=== PATIENT | male | born 1980 | race Caucasian/White ===

== ENCOUNTER 2017-07-01 20:26 | Inpatient (IN) | payer OTHER ==
[~2017-07-01] VITALS: Ht 185.4 cm; Wt 153.9 kg
[2017-07-01 21:27] LABS: ABSOLUTE BASOPHIL COUNT 0 /CUMM (0.0-0.2); ABSOLUTE EOSINOPHIL COUNT 0.1 /CUMM (0.0-0.7); ABSOLUTE GRANULOCYTE CT 3.9 /CUMM (1.4-6.5); ABSOLUTE MONOCYTE COUNT 0.8 /CUMM (0.10-0.60); BASOPHIL % 0.5 % (0.0-2.0); EOSINOPHIL % 1.9 % (0-5); GRANULOCYTE % 50.1 % (42.2-75.2); HEMATOCRIT 43.9 % (42-52); MEAN CORPUSCULAR HGB 29.1 PG (27.0-31.0); MEAN CORPUSCULAR HGB CONC 33.9 G/DL (33.0-37.0); MEAN CORPUSCULAR VOLUME 85.9 FL (80.0-94.0); MEAN PLATELET VOLUME 7.1 FL (7.4-10.4); PLATELET COUNT 324 /CUMM (130-400); RBC DISTRIBUTION WIDTH 13.4 % (11.5-14.5); RED BLOOD CELL CT 5.11 /CUMM (4.70-6.10); WHITE BLOOD CELL COUNT 7.8 /CUMM (4.8-10.8)
--- NOTE | 2017-07-01 21:49 | ED GENERAL ADULT ---
History of Present Illness General Chief Complaint: General Adult Stated Complaint: "SOB, CP, FATIGUE. GAINED WATER WEIGHT" Source: patient Exam Limitations: no limitations Vital Signs & Intake/Output Vital Signs & Intake/Output Vital Signs Date Time Temp Pulse Resp B/P B/P Pulse O2 O2 Flow FiO2 Mean Ox Delivery Rate 07/01 2156 96 Room Air 07/02 2155 97.5 64 16 151/89 96 Room Air Allergies Coded Allergies: No Known Allergies (07/01/17) Triage Note: RECEIVED 37 YO MALE PRESENTS TO THE ED WITH C/O UNUSUAL FLUID BUILDUP ALL OVER BODY STARTED LAST TUESDAY WITH 15-20 LB WEIGHT GAIN. PT ALSO REPORTS SHORTNESS OF BREATH AND INTERMITTENT CHEST PAIN. PT REPORTS FATIGUE, H/A WITH SOB AND CP. Triage Nurses Notes Reviewed? yes Onset: Abrupt Duration: day(s): Timing: recent history HPI: 07/01/17 11 PM 37-year-old male presents to the emergency department for intermittent episodes of chest heaviness and difficulty breathing. He also says that he's had bilateral lower extremity swelling. The above symptoms have developed over the past 48-72 hours. He says he is getting winded on ambulation and is unable to go the gym. His symptoms are new and there has been a dramatic change from his baseline. I have concern for acute coronary syndrome he is therefore being admitted to the hospital for echocardiogram, cardiology consultation and further workup. Past History Travel History Traveled to [place] past 21 day No Medical History Any Pertinent Medical History? see below for history Neurological: NONE EENT: NONE Cardiovascular: NONE Respiratory: NONE Gastrointestinal: NONE Hepatic: NONE Renal: NONE Musculoskeletal: NONE Psychiatric: NONE Endocrine: hypothyroidism Blood Disorders: NONE Cancer(s): NONE Surgical History Surgical History: non-contributory Psychosocial History What is your primary language Bulgarian Tobacco Use: Never used Family History Hx Contributory? No Review of Systems Review of Systems Constitutional: Denies: fever. EENTM: Denies: visual changes. Respiratory: Reports: short of breath. Cardiovascular: Reports: chest pain. GI: Denies: abdominal pain. Genitourinary: Reports: no symptoms. Musculoskeletal: Reports: no symptoms. Skin: Reports: no symptoms. Neurological/Psychological: Reports: no symptoms. Hematologic/Endocrine: Reports: no symptoms. Immunologic/Allergic: Reports: no symptoms. Physical Exam Physical Exam General Appearance: alert, awake, anxious, moderate distress Head: atraumatic, normal appearance Eyes: Bilateral: normal appearance, PERRL, EOMI. Ears, Nose, Throat: normal pharynx, normal ENT inspection Neck: normal inspection, supple, full range of motion Respiratory: normal breath sounds, chest non-tender, no respiratory distress Cardiovascular: regular rate/rhythm Peripheral Pulses: 4+ radial (R), 4+ radial (L) Gastrointestinal: soft, non-tender Back: normal range of motion Extremities: pedal edema Neurologic/Psych: no motor/sensory deficits, awake, alert, oriented x 3 Skin: intact, normal color, warm/dry Core Measures ACS in differential dx? Yes No ASA d/t given CVA/TIA Diagnosis: No Sepsis Present: No Sepsis Focused Exam Completed? No Progress Differential Diagnoses I considered the following diagnoses in my evaluation of the patient: [Acute coronary syndrome, CHF, renal failure, pulmonary embolism ] Plan of Care: Orders Procedure Date/time Status LACTIC ACID 07/02 0020 Active Patient Data 07/01 2347 Active Add-on Test (ER Only) 07/02 2239 Active TROPONIN LEVEL 07/01 2238 Active EKG 07/01 2238 Active TROPONIN LEVEL 07/02 2119 Complete LACTIC ACID 07/02 2119 Complete D-DIMER 07/02 2119 Complete COMPREHENSIVE METABOLIC PANEL 07/02 2119 Complete CBC WITHOUT DIFFERENTIAL 07/02 2119 Complete B-TYPE NATRIURETIC PEP (BNP) 07/02 2119 Complete EKG 07/02 2043 Active Laboratory Tests 07/01/172119: Anion Gap 13, Estimated GFR 52 L, BUN/Creatinine Ratio 14.7, Glucose 91, Lactic Acid 1.1, Calcium 9.4, Total Bilirubin 0.4, AST 83 H, ALT 151 H, Alkaline Phosphatase 43, Troponin I < 0.01, Uwj-I-Dwfknqzsguw Pept 41.4, Total Protein 6.8, Albumin 3.9, Globulin 2.9, Albumin/Globulin Ratio 1.3, D-Dimer High Sensitivty < 200, CBC w Diff NO MAN DIFF REQ, RBC 5.11, MCV 85.9, MCH 29.1, MCHC 33.9, RDW 13.4, MPV 7.1 L, Gran % 50.1, Lymphocytes % 37.8, Monocytes % 9.7 H, Eosinophils % 1.9, Basophils % 0.5, Absolute Granulocytes 3.9, Absolute Lymphocytes 3.0, Absolute Monocytes 0.8 H, Absolute Eosinophils 0.1, Absolute Basophils 0 Initial ED EKG: NSR Departure Departure Disposition: STILL A PATIENT Condition: Stable Clinical Impression Primary Impression: ABBI (acute kidney injury) Secondary Impressions: Chest pain Referrals: Augustin Collazo MD (PCP/Family) Departure Forms: Customer Survey General Discharge Information Admission Note Spoke With: Jacqueline Ledesma MD Documentation of Exam: Documentation of any treatments & extenuating circumstances including Concerns Regarding Discharge (functional status, medication knowledge or non-compliance, living conditions, etc.) that warrant an admission rather than observation: [The patient's story is concerning for acute coronary syndrome. He has evidence of renal insufficiency. He needs serial troponins, cardiac monitoring, cardiology consultation] Critical Care Note Critical Care Note Critical Care Time: non-applicable
--- NOTE | 2017-07-01 23:08 | RADIOLOGY REPORT ---
EXAMINATION: XR PORTABLE CHEST CLINICAL INFORMATION: Shortness of breath COMPARISON: None TECHNIQUE: Portable frontal view of the chest was obtained. 10:49 PM FINDINGS: No significant abnormality is noted involving the heart, lungs, mediastinum, bony thorax or soft tissues. IMPRESSION: Unremarkable examination.
--- NOTE | 2017-07-02 00:25 | History & Physical ---
Nils Don MD 07/02/17 0025: General Information and HPI MD Statement: I have seen and personally examined TAMMY WATSON and documented this H&P. The patient is a 37 year old M who presented with a patient stated chief complaint of dyspnea, swelling, chest pain. Source of Information: patient Exam Limitations: no limitations History of Present Illness: 37 year old male with past medical history of morbid obesity and hypothyroidism on synthroid presents with complaints of one week of progressive exertional dyspnea and lower extremity edema. The patient was reportedly in his usual state of health up until one week ago when he noticed gradual onset of edema and exertional dyspnea. The patient says he becomes short of breath after going up one flight of stairs when he usually does thirty minutes of cardio exercise five days a week. The patient takes in a high protein diet and creatine supplements. He states he has gained over 25 pounds of water weight and is now having difficulty putting on pants that previously fit in a short time period. Yesterday, he developed chest pain. He describes it as a shock like pain midsternal more towards the left chest, 3/10 in severity, transient lasting only a few seconds, but greater than 10 episodes in the past 24 hours without associated symptoms, but causing psychological distress. Today, he developed a left sided constant dull headache that is very unusual for him. Review of systems is positive for nasal congestion and minimally productive cough, negative for fevers, chills, cough, abdominal pain, nausea, vomiting, diarrhea. He does report less urine output and feeling increased thirst. He says he usually drinks a gallon of water daily. In the emergency department, he had a chest x-ray, given aspirin, and admitted to telemetry for further management. Allergies/Medications Allergies: Coded Allergies: No Known Allergies (07/01/17) Compliance With Home Meds: GOOD Past History Travel History Traveled to [place] past 21 day No Medical History Neurological: NONE EENT: NONE Cardiovascular: NONE Respiratory: NONE Gastrointestinal: NONE Hepatic: NONE Renal: NONE Musculoskeletal: NONE Psychiatric: NONE Endocrine: hypothyroidism Blood Disorders: NONE Cancer(s): NONE Surgical History Surgical History: non-contributory Past Family/Social History Family History Relations & Conditions if any paternal uncle FH: diabetes mellitus Psychosocial History Smoking Status: Never Smoked ETOH Use: occasional use Illicit Drug Use: denies illicit drug use Functional Ability ADLs Independent: dressing, eating, toileting, bathing. Ambulation: independent IADLs Independent: shopping, housework, finances, food prep, telephone, transportation , medication admin. Review of Systems Review of Systems Constitutional: Reports: see HPI. Denies: chills, diaphoresis, fever. EENTM: Reports: no symptoms. Cardiovascular: Reports: chest pain, peripheral edema. Denies: palpitations, syncope. Respiratory: Reports: cough, short of breath, sputum production. GI: Reports: abdominal pain, constipation, diarrhea, nausea, vomiting. Genitourinary: Denies: dysuria, frequency. Musculoskeletal: Reports: no symptoms. Skin: Reports: no symptoms. Neurological/Psychological: Reports: no symptoms. Hematologic/Endocrine: Reports: polydipsia. Immunologic/Allergic: Reports: no symptoms. All Other Systems: Reviewed and Negative Exam & Diagnostic Data Last 24 Hrs of Vital Signs/I&O Vital Signs Date Time Temp Pulse Resp B/P B/P Pulse O2 O2 Flow FiO2 Mean Ox Delivery Rate 07/02 0153 97.7 80 18 155/69 96 Room Air 07/01 2156 96 Room Air 07/02 2155 97.5 64 16 151/89 96 Room Air Intake & Output 07/02 0800 07/02 0000 07/01 1600 Intake Total 0 Output Total Balance 0 Intake, Oral 0 Patient 158.757 kg Weight Weight Estimated Measurement Method Physical Exam General Appearance Alert, Oriented X3, Cooperative, No Acute Distress Neck Supple, No JVD Cardiovascular Regular Rate, Normal S1, Normal S2, No Murmurs Lungs Clear to Auscultation, Normal Air Movement Abdomen Normal Bowel Sounds, Soft, No Tenderness, No Masses Extremities No Clubbing, No Cyanosis, Normal Pulses, No Tenderness/Swelling, 2+ bilateral lower extremity pitting edema up to the knees Last 24 Hrs of Labs/Yoshi: Laboratory Tests 07/02/17 0020: Troponin I < 0.01, TSH Pending, Thyroxine (T4) 5.0 07/02/17 002: Lactic Acid Cancelled 07/01/172119: Anion Gap 13, Estimated GFR 52 L, BUN/Creatinine Ratio 14.7, Glucose 91, Lactic Acid 1.1, Calcium 9.4, Total Bilirubin 0.4, AST 83 H, ALT 151 H, Alkaline Phosphatase 43, Troponin I < 0.01, Uoa-U-Oicfdjbuwti Pept 41.4, Total Protein 6.8, Albumin 3.9, Globulin 2.9, Albumin/Globulin Ratio 1.3, D-Dimer High Sensitivty < 200, CBC w Diff NO MAN DIFF REQ, RBC 5.11, MCV 85.9, MCH 29.1, MCHC 33.9, RDW 13.4, MPV 7.1 L, Gran % 50.1, Lymphocytes % 37.8, Monocytes % 9.7 H, Eosinophils % 1.9, Basophils % 0.5, Absolute Granulocytes 3.9, Absolute Lymphocytes 3.0, Absolute Monocytes 0.8 H, Absolute Eosinophils 0.1, Absolute Basophils 0 Microbiology 07/02 0233 URINE ROUT: Urine Culture - ORD Diagnostic Data EKG Results sinus rhythm left axis deviation without ischemic changes CXR Results negative for acute cardiopulmonary process Assessment/Plan Assessment: 37 year old male with past medical history of morbid obesity and hypothyroidism presents with complaints of one week of progressive exertional dyspnea and lower extremity edema. Exertional dyspnea and edema: Possibly related to renal failure, nephrotic syndrome, or medications Elevated creatinine and transaminitis on protein supplements Creatinine 1.5 on presentation Repeat renal function in the morning Avoid NSAIDs and nephrotoxic agents Check urine protein and creatinine to evaluate for nephrotic syndrome May need 24 hour urine study Morbid obesity, proBNP normal, atypical chest pain, chest x-ray no pulmonary edema Check serial troponins and EKGs to evaluate for myocardial ischemia Check transthoracic echocardiogram Cardiology consultation Check abdominal ultrasound to evaluate liver, gallbladder, and kidneys Stop all supplements Hypothyroidism: Check TSH Continue synthroid 175mcg Regular diet DVT ppx-heparin 5000 units subcutaneous q8h Full code As Ranked By This Provider Problem List: 1. ABBI (acute kidney injury) 2. Chest pain Core Measures/Misc (12/05) Acute Coronary Syndrome ACS Diagnosis: No Congestive Heart Failure Congestive Heart Failure Diagnosis No Cerebrovascular Accident CVA/TIA Diagnosis: No VTE (View Protocol) VTE Risk Factors Age>40 No Mechanical VTE Prophylaxis d/t N/A MechProphylax Ordered No VTE Pharm Prophylaxis d/t NA PharmProphylax ordered Sepsis (View protocol) Sepsis Present: No Sandra Correa 07/02/17 0508: General Information and HPI Allergies/Medications Home Med list Levothyroxine Sodium 175 MCG TABLET 1 TAB PO DAILY Hypothryoidism (Reported) Resident Review Statement Resident Statement: examined this patient, discussed with internal audit director, agreed with internal audit director, reviewed images Other Findings: 37-year-old gentleman, nonsmoker past medical history significant for hypothyroidism coming in for evaluation of lower extremity swelling, chest pain and mild shortness of breath on walking up one flight of stairs. Lower extremity swelling and shortness of breath about a week duration. Denies fever, chills, cough, orthopnea, proximal nocturnal dyspnea. Also endorses chest pain which started yesterday, describes it at shocklike midsternal nonradiating. ROS significant for right-sided dull aching headache, decreased exercise intolerance and decreased urination since past few days. He has been taking nitroglycerin Tech protein and creatinine supplement over the years. Vitals on admission 97.5, heart rate 64, respiratory rate 16, blood pressure 151 /89, 96% on room air. Examination as above. Labs significant for the unit of 22, creatinine of 1.5 [baseline unknown], AST 83, ALT 151, troponin 0.01, d-dimer less than 200 Chest x-ray was unremarkable and EKG showed normal sinus rhythm. Assessment and plan: Chest pain Admit to telemetry floor, continuous cardiac monitoring Will trend troponin/EKG f/up echocardiogram to look for wall motion or any valvular abnormalities Bilateral lower edema Unclear etiology at this time unlikely to be nephrotic (as his edema is not typical of anasarca, no proteinuria) or nephritic (nonhypertensive, or hematuria ). Possible secondary to chronic venous insufficiency due to his body habitus -Strict I's and O's -Follow-up, urine spot creatinine protein ratio ? ABBI/transaminitis F/up with his PCP to see what his baseline creatinine is Continue to monitor Follow-up LFTs in a.m. Follow-up complete abdominal ultrasound to visualize liver as well as his kidneys His protein and creatinine supplement is noted to cause kidney injury as well as affect liver function Avoid hepatotoxic and Nephrotoxic medications Hypothyroidism Continue levothyroxine Follow-up TSH T4 DVT prophylaxis subcutaneous heparin Nothing by mouth currently for ultrasound Full code Callie,Aartee 07/02/17 0525: Attending MD Review Statement Attending Statement Attending MD Statement: examined this patient, discuss w/resident/PA/COTTON TIER, agreed w/resident/PA/COTTON TIER, reviewed EMR data (avail), reviewed images, amended to note Attending Assessment/Plan: CC: Chest pain PMH: Hypothyroidism, obesity Patient came to ER for today history of chest pain. Patient states that approximately a week back he started to notice bilateral lower extremity swelling, and gradually he felt like the whole body is getting bloated. He usually works out 5 times a week for cardio but in last 1 week his exercise capacity has gone down and he is getting short of breath with half hour of cardio or he gets short of breath climbing one flight of stairs. He also noticed nasal congestion and discharge and productive cough with white colored sputum production. Denies any chest congestion. 2 days back he started to notice substernal chest pain, sharp, 4/10 in intensity, nonradiating, lasting for a few seconds, not precipitated by exertion, no relieving factors, it goes away on its own. Then today he started to notice headache so forth this constellation of symptoms he came to ER. Denies any pleuritic chest pain, fever, chills, urinary complaints, palpitations or passing out. Patient was on liragluitide in past for weight loss, stopped 6 - 8 months back. Takes lot of OTC supplements. Vitals: Afebrile, pulse 64, RR 16, blood pressure 151/89, saturating 96% on room air. On exam: A O 3, cooperative, no acute distress, neck supple, JVD normal, no lymphadenopathy, mucosa moist, no focal neurological deficit, bilateral lower extremity edema mostly around the ankles but up to knees, no obvious skin rashes or inflammation CVS: S1-S2, RRR. RS: Clear to auscultate bilaterally. Abdomen: Soft, NT, ND, bowel sounds present CXR: no acute cardiopulmonary process Assessment and plan 37-year-old male came to ER for shortness of breath mostly dyspnea on exertion worsened since last 1 week, leg swelling since last 1 week, nasal congestion and productive cough with white colored sputum production. 2 days back he started to notice chest pain was was sharp, nonradiating, no aggravating or relieving factors, not precipitated by exertion, 4/10 in intensity. Does not have any significant cardiac history and family. Doesn't smoke. Chest pain appeared atypical but ACS ruled out. Even though patient states he feels bloated all over his only lower extremity edema, I could not appreciate any abdominal pitting edema or fluid thrill, no scrotal edema, no periapical edema. Patient's blood pressure is in acceptable range but his creatinine is elevated, we will rule out any proteinuria for nephrotic syndrome but less likely. We will rule out any congestive heart failure with echocardiogram as well. Edema appears more secondary to obesity and vascular issues which should be worked up outpatient. Possibly OTC supplements could be causing his kidney injury and transaminitis. + Atypical chest pain, rule out ACS + Bilateral lower extremity edema + Elevated creatinine unsure if it's chronic or new - Admit to telemetry - Continuous telemetry monitoring - Serial troponin and EKGs - 2-D echo in a.m. - Cardiology consult in a.m. - Urine protein creatinine ratio - Check TSH - Plate abdominal ultrasound for transaminitis to rule out gallbladder and liver pathology, rule out ascites, evaluate kidneys for elevated creatinine - DVT prophylaxis
[2017-07-02] MEDS ORDERED: LEVOTHYROXINE175 MCG PO (05:08)
--- NOTE | 2017-07-02 05:26 | Admission Certification ---
Admission Certification Certification Statement - As attending physician, I certify that at the time of - admission, based on clinical presentation, severity of - symptoms, need for further diagnostic testing and - therapeutic interventions, and risk of adverse outcomes - without in-hospital treatment, in my clinical assessment, - this patient requires an acute hospital stay for a minimum - of two nights or longer. I have also considered psychsocial - factors such as support system, advanced age, financial - issues, cognitive issues, and failed out-patient treatments, - past re-admission history, safety of patient, and lack of - compliance as applicable. Specific rationale supporting this admission is: atypical chest pain
--- NOTE | 2017-07-02 11:33 | ULTRASOUND REPORT ---
EXAMINATION: ABDOMINAL ULTRASOUND COMPLETE CLINICAL INFORMATION: Acute renal injury. Transaminitis. COMPARISON: None. TECHNIQUE: Real-time imaging of the abdominal viscera. FINDINGS: PANCREAS: The visualized pancreatic head and body are normal in appearance. The remainder of the pancreas is obscured from visualization by the overlying bowel gas. ABDOMINAL AORTA: The proximal, middle, and distal aortic segments are normal in caliber. INFERIOR VENA CAVA: Visualized portions are normal. LIVER: Normal. The liver demonstrates normal size, contour and echogenicity. No focal lesion or intrahepatic biliary duct dilatation. GALLBLADDER: Normal. The gallbladder is physiologically distended without evidence of stones, sludge, polyps, wall thickening or pericholecystic fluid. COMMON BILE DUCT: Normal in caliber measuring 0.4 cm in diameter. RIGHT KIDNEY: Normal. No hydronephrosis. No renal calculi or focal parenchymal lesions. The kidney measures 9.8 cm in maximum dimension. LEFT KIDNEY: Normal. No hydronephrosis. No renal calculi or focal parenchymal lesions. The kidney measures 10.2 cm in maximum dimension. SPLEEN: Normal. The spleen measures 11.9 cm in maximum dimension. FREE FLUID: None. IMPRESSION: Unremarkable abdominal ultrasound.
--- NOTE | 2017-07-02 17:17 | PN- Att Addend ---
Attending Addendum Attending Brief Note 37M PMH hypothyroidism admitted with about a week of worsening diffuse edema, worst in arms, legs, and abdomen, with decreased urination for the past week, drinks 1 gallon of water/day at baseline. He has also noted shooting left sided chest pain that lasts for less than a second at rest intermittently occuring a few times per day. He has no history of heart problems or family history, no new medications or supplements, does not smoke or take drugs. 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 He had T-wave inversions in inferior leads on EKG on admission from his EKG a few years prior. His ensuing EKG's are unchanged from his admission one, with no ST/T changes, NSR. Troponin negative. On exam he has 2+ pitting edema in both legs and increased abdominal girth, soft and non- tender. BNP is normal, creatinine 1.5 on admission, 1.3 now. Transaminases slightly elevated. 1. Anasarca 2. Elevated creatinine 3. Elevated LFTs 4. Chest pain at rest 5. Acute EKG changes Plan - Continue on telemetry - Continue ASA - Give Lasix 20mg IV once - I/O, daily weights - Send urine osmolality, sodium, creatinine, as well as 24 hour urinary protein - Send serum osmolality - Echocardiogram - Cardiology consult - DVT PPx
[2017-07-02 23:00] VITALS: BP 142/88
[2017-07-03 06:00] VITALS: BP 118/64
[2017-07-03 14:00] VITALS: BP 128/66
--- NOTE | 2017-07-03 14:57 | PN- Att Addend ---
Attending Addendum Attending Brief Note 37M PMH hypothyroidism admitted with about a week of worsening diffuse edema, worst in arms, legs, and abdomen, with decreased urination for the past week, drinks 1 gallon of water/day at baseline. He has also noted shooting left sided chest pain that lasts for less than a second at rest intermittently occuring a few times per day. He has no history of heart problems or family history, no new medications or supplements, does not smoke or take drugs. 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 His ensuing EKG's are unchanged from his admission one, with no ST/T changes, NSR. Troponin negative. On admission exam he has 2+ pitting edema in both legs and increased abdominal girth, soft and non-tender. BNP is normal, creatinine 1.5 on admission, 1.3 now. Transaminases slightly elevated. Today feels a bit better. His edema is slightly improved. No episodes of chest pain. 13-point review of systems negative aside from HPI AFVSS NAD, comfortable NCAT Anicteric MMM Supple RRR no m/r/g CTAB Soft, NTND 1+ pitting edema b/l to knees Pulses intact A&Ox3 no focal deficits Current Medications Sig/Arnulfo Start time Last Medication Dose Route Stop Time Status Admin Furosemide 40 MG .STK-MED ONE 07/02 1957 DC IV 07/02 1958 Furosemide 20 MG ONCE ONE 07/02 1944 DC 07/02 IV 07/02 Heparin Sodium 5,000 UNIT Q8 07/02 0600 AC 07/03 (Porcine) SC 1255 Levothyroxine Sodium 0.175 MG DAILY AC 07/02 0700 07/03 PO 0639 Laboratory Tests 07/03 07/02 07/02 0630 2103 1933 Chemistry Sodium (137 - 145 mmol/L) 140 Potassium (3.5 - 5.1 mmol/L) 4.7 Chloride (98 - 107 mmol/L) 102 Carbon Dioxide (22 - 30 mmol/L) 25 Anion Gap (5 - 16) 13 BUN (9 - 20 mg/dL) 20 Creatinine (0.7 - 1.2 mg/dL) 1.4 H Estimated GFR (>60 ml/min) 56 L BUN/Creatinine Ratio (7 - 25 %) 14.3 Serum Osmolality (285 - 295 MOSM/KG) 297 H Cancelled Total Bilirubin (0.2 - 1.3 mg/dL) 0.7 Direct Bilirubin (< 0.4 mg/dL) 0.4 AST (17 - 59 U/L) 63 H ALT (21 - 72 U/L) 154 H Alkaline Phosphatase (< 127 U/L) 47 Total Protein (6.3 - 8.2 g/dL) 6.9 Albumin (3.5 - 5.0 g/dL) 4.0 Urines Urine Osmolality (300 - 1000 MOSM/KG) 653 Ur Random Creatinine (mg/dL) 111.1 Ur Random Sodium (30 - 90 mmol/L) 155 H Ur Random Potassium (mmol/L) 27.5 Fraction Sodium Excret (<1% %) 1.3 H Vital Signs Date Time Temp Pulse Resp B/P B/P Pulse O2 O2 Flow FiO2 Mean Ox Delivery Rate 07/03 0600 97.5 67 18 118/64 94 07/02 2300 98.4 67 18 142/88 95 07/02 1600 68 18 128/70 98 Room Air Intake & Output 07/03 1600 07/03 0800 07/03 0000 Intake Total 660 120 240 Output Total 800 750 Balance -140 120 -510 Intake, IV 10 Intake, Oral 650 120 240 Output, Urine 800 750 Patient 158.757 kg Weight Weight Bed scale Measurement Method 1. Anasarca 2. Elevated creatinine 3. Elevated LFTs 4. Chest pain at rest 5. Acute EKG changes Plan - Continue on telemetry - Continue ASA - Give Lasix 20mg IV once - I/O, daily weights - Send urine osmolality, sodium, creatinine, as well as 24 hour urinary protein - Send serum osmolality - Echocardiogram - Cardiology consult - DVT PPx
[2017-07-03 23:18] VITALS: BP 150/78
[2017-07-04 06:00] VITALS: BP 120/80
[2017-07-04 08:01] LABS: ABSOLUTE BASOPHIL COUNT 0 /CUMM (0.0-0.2); ABSOLUTE EOSINOPHIL COUNT 0.2 /CUMM (0.0-0.7); ABSOLUTE GRANULOCYTE CT 3.2 /CUMM (1.4-6.5); ABSOLUTE LYMPH COUNT 2.2 /CUMM (1.2-3.4); ABSOLUTE MONOCYTE COUNT 0.7 /CUMM (0.10-0.60); BASOPHIL % 0.5 % (0.0-2.0); EOSINOPHIL % 3.3 % (0-5); HEMATOCRIT 47.5 % (42-52); MEAN CORPUSCULAR HGB 29.1 PG (27.0-31.0); MEAN CORPUSCULAR HGB CONC 33.7 G/DL (33.0-37.0); MEAN CORPUSCULAR VOLUME 86.4 FL (80.0-94.0); MEAN PLATELET VOLUME 7.7 FL (7.4-10.4); PLATELET COUNT 280 /CUMM (130-400); RBC DISTRIBUTION WIDTH 13.6 % (11.5-14.5); RED BLOOD CELL CT 5.49 /CUMM (4.70-6.10); WHITE BLOOD CELL COUNT 6.4 /CUMM (4.8-10.8)
--- NOTE | 2017-07-04 10:31 | PN- Housestaff ---
Vandana GRACIA,Aaliyah 07/04/17 1030: Subjective Follow-up For: Proteinuria with ABBI Transaminitis Chest pain and shortness of breath Complaints: no complaints Tele-Events Since Last Visit: Overnight patient had heart rates ranging from 36-63, no events Subjective: Patient states that he is feeling good on interview. He has no complaints. Review of Systems Constitutional: Reports: no symptoms. Cardiovascular: Reports: no symptoms. Respiratory: Reports: no symptoms. Gastrointestinal: Reports: no symptoms. Genitourinary: Reports: no symptoms. Musculoskeletal: Reports: no symptoms. Objective Last 24 Hrs of Vital Signs/I&O Vital Signs Date Time Temp Pulse Resp B/P B/P Pulse O2 O2 Flow FiO2 Mean Ox Delivery Rate 07/04 2141 98.6 63 20 118/60 93 Room Air 07/04 1422 98.2 64 20 112/70 96 Room Air 07/04 0600 97.8 58 18 120/80 96 Intake & Output 07/05 0800 07/05 0000 07/04 1600 Intake Total 510 Output Total Balance 510 Intake, IV 10 Intake, Oral 500 Patient 339 lb Weight Physical Exam General Appearance: Alert, Oriented X3, Cooperative, No Acute Distress Skin: No Rashes, No Breakdown, No Significant Lesion Skin Temp/Moisture Exam: Warm/Dry Sepsis Skin Exam (color): Normal for Ethnicity HEENT: Atraumatic, EOMI, Mucous Membr. moist/pink Neck: Supple, No JVD Cardiovascular: Regular Rate, Normal S1, Normal S2, No Murmurs Lungs: Clear to Auscultation, Normal Air Movement Abdomen: Normal Bowel Sounds, Soft, No Tenderness, No Hepatospenomegaly, No Masses Neurological: Normal Speech Extremities: No Clubbing, No Cyanosis, No Edema, Normal Pulses, No Tenderness/ Swelling Vascular: Normal Pulses, Pulses Symmetrical Sepsis Peripheral Pulse Location: Radial Current Medications: Current Medications Sig/Arnulfo Start time Last Medication Dose Route Stop Time Status Admin Heparin Sodium 5,000 UNIT Q8 07/02 0600 AC 07/04 (Porcine) SC 2102 Levothyroxine Sodium 0.175 MG DAILY AC 07/02 0700 AC 07/04 PO 0636 Last 24 Hrs of Lab/Yoshi Results Last 24 Hrs of Labs/Mics: Laboratory Tests 07/04/17 0650: Hemoglobin A1c Pending 07/04/17 0650: Anion Gap 9, Estimated GFR 56 L, BUN/Creatinine Ratio 14.3, CBC w Diff NO MAN DIFF REQ, RBC 5.49, MCV 86.4, MCH 29.1, MCHC 33.7, RDW 13.6, MPV 7.7, Gran % 51.0, Lymphocytes % 34.3, Monocytes % 10.9 H, Eosinophils % 3.3, Basophils % 0.5, Absolute Granulocytes 3.2, Absolute Lymphocytes 2.2, Absolute Monocytes 0.7 H, Absolute Eosinophils 0.2, Absolute Basophils 0 Assessment/Plan Assessment: Patient is a 37-year-old male with a past medical history of hypothyroidism and obstructive sleep apnea that was admitted with worsening edema, chest pain, shortness of breath and decreased urination for one week. 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 The patient has no history of heart problems in himself or his family, no respiratory issues. He had T-wave inversions in inferior leads on EKG on admission from his EKG a few years prior. His ensuing EKG's are unchanged from his admission one, with no ST/T changes, NSR. Troponins have been negative. U tox is negative and d-dimer negative. Physical exam was pertinent for 2+ pitting edema in his legs yesterday but now has decreased. Creatinine has decreased and transaminases remain elevated. Patient's glomerular alteration rate as per MDRD not taking into account height or weight, only good for chronic GFR measurement, is 60. The crockcroff formula takes into account height and weight and is thus more reliable for him with a GFR from 79.7-110.5. Patient was given 1 dose of Lasix 20 mg IV on admission. His UA was unimpressive but his urine total protein 24-hour collection was mildly elevated (not quite nephrotic range) along with a fractional sodium excretion and 24-hour creatinine excretion which is excessively elevated. Urine glucose was negative. Abdominal ultrasound negative. Chest x-ray negative. Plan Proteinuria and ABBI -Keep patient to refrain from usage of multiple herbal supplements including fat burners and high protein heavy diet as well as creatine supplements -Check hemoglobin A1c, glucose and the blood was normal, negative glucose in the urine -Appreciate nephrology consult -Urine culture negative so far -Ins and outs and daily weights Chest pain -Echocardiogram showed 60% EF, otherwise normal read -Appreciate cardiac consults -Continue aspirin Hypothyroidism -TSH is normal -Continue levothyroxine outpatient dose Elevated transaminases: Does not follow a pattern for alcohol use. Potentially secondary to third spacing and decreased hepatic perfusion? Ultrasound abdomen is negative but does appear distended. -Trend LFTs Obstructive sleep apnea -Start CPAP which patient uses outpatient Full code Healthy diet DVT prophylaxis with heparin and Alps Problem List: 1. ABBI (acute kidney injury) 2. Chest pain Pain Ratin Pain Location: na Pain Goal: Remain pain free Pain Plan: na Tomorrow's Labs & Rationales: cbc bep Malick Matos 07/04/17 1132: Attending MD Review Statement Attending Statement Attending MD Statement: examined this patient, discuss w/resident/PA/SENIOR SALES CONSULTANT, agreed w/resident/PA/SENIOR SALES CONSULTANT, discussed with family, reviewed EMR data (avail), discussed with nursing, discussed with case mgmt, reviewed images, amended to note Attending Assessment/Plan: 37M PMH hypothyroidism admitted with about a week of worsening diffuse edema, worst in arms, legs, and abdomen, with decreased urination for the past week, drinks 1 gallon of water/day at baseline admitted here for abnormal creatinine, protienuria and elevation of LFTS and atypical chest pain. No new complaints. His edema improved. No episodes of chest pain. 1. BMI 45.4 2. Elevated creatinine 3. Elevated LFTs 4. Proteinuria 5. LAZARO uses NIPPV 6. Atypcial chest pain. Plan - Continue on telemetry - Continue ASA - Echocardiogram - Cardiology consult, nephrology consult. - Avoid herbal supplements OTC. - DVT PPx
--- NOTE | 2017-07-04 10:50 | ECHOCARDIOGRAM REPORT ---
TAMMY WATSON Age: 37 : 1980 Gender: M Exam Date: 07/03/2017 10:35 Exam Location: 1 [address] Ht (in): 73 Wt (lb): 350 BSA: 2.94 BP: 118 / 64 Ordering Physician: Sandra Correa MD Referring Physician: Castro Rajput MD Technologist: Alyssa Aquino [facility] Room Number: [id number] Indications: Rhythm: Sinus Technical Quality: Poor FINDINGS Left Ventricle Normal size left ventricle. Mild concentric left ventricular hypertrophy. No obvious regional wall motion abnormalities. Normal left ventricular ejection fraction visually estimated at 60%. Normal left ventricular diastolic filling pattern for age. Right Ventricle Right ventricle at upper limits of normal. Right Atrium Normal right atrial size. Left Atrium Normal left atrial size. Mitral Valve Mild mitral annular calcification. Mitral valve mildly thickened. Trace mitral regurgitation. Aortic Valve Structurally normal trileaflet aortic valve. No aortic valve stenosis or regurgitation. Tricuspid Valve Structurally normal tricuspid valve. No tricuspid regurgitation. Unable to estimate the right ventricular systolic pressure. Pulmonic Valve Pulmonic valve not well visualized, grossly normal. Trace pulmonic regurgitation. Pericardium No pericardial effusion. Great Vessels Normal size aortic root. CONCLUSIONS Normal size left ventricle. Mild concentric left ventricular hypertrophy. No obvious regional wall motion abnormalities. Normal left ventricular ejection fraction visually estimated at 60%. Normal left ventricular diastolic filling pattern for age. Right ventricle at upper limits of normal. Normal right atrial size. Normal left atrial size. Trace mitral regurgitation. Unable to estimate the right ventricular systolic pressure. Trace pulmonic regurgitation. Castro Rajput M.D. (Electronically Signed) Final Date: 04 July 2017 10:50 MEASUREMENTS (Male / Female) Normal Values 2D ECHO LV Diastolic Diameter PLAX 5.3 cm 4.2 - 5.9 / 3.9 - 5.3 cm LV Systolic Diameter PLAX 3.5 cm 2.1 - 4.0 cm LV Fractional Shortening PLAX 34.0 % 25 - 46 % LV Ejection Fraction 2D Teich 62.4 % IVS Diastolic Thickness 1.1 cm LVPW Diastolic Thickness 1.1 cm LV Relative Wall Thickness 0.4 RV Internal Dim ED PLAX 3.8 cm 1.9 - 3.8 cm LVOT Diameter 2.2 cm Aortic Root Diameter 3.4 cm LA Systolic Diameter LX 4.6 cm 3.0 - 4.0 / 2.7 - 3.8 cm LA Volume 47.0 cm 18 - 58 / 22 - 52 cm DOPPLER AV Peak Velocity 134.0 cm/s AV Peak Gradient 7.2 mmHg AV Mean Velocity 92.1 cm/s AV Mean Gradient 4.0 mmHg AV Velocity Time Integral 27.7 cm LVOT Peak Velocity 106.0 cm/s LVOT Peak Gradient 4.5 mmHg LVOT Mean Velocity 64.3 cm/s LVOT Mean Gradient 2.0 mmHg LVOT Velocity Time Integral 22.1 cm LVOT Stroke Volume 84.0 cm AV Area Cont Eq vti 3.0 cm AV Area Cont Eq pk 3.0 cm MV Peak Velocity 87.6 cm/s MV Peak Gradient 3.1 mmHg MV Mean Velocity 51.8 cm/s MV Mean Gradient 1.0 mmHg Mitral E Point Velocity 76.5 cm/s Mitral A Point Velocity 56.3 cm/s Mitral E to A Ratio 1.4 MV PHT Velocity 89.5 cm/s MV Deceleration Kinney 235.0 cm/s MV Pressure Half Time 114.3 ms MV Area PHT 1.9 cm MV Deceleration Time 251.0 ms PV Peak Velocity 114.5 cm/s PV Peak Gradient 5.2 mmHg PV Mean Velocity 81.2 cm/s PV Mean Gradient 3.0 mmHg PV Velocity Time Integral 13.0 cm LV E' Lateral Velocity 12.5 cm/s Mitral E to LV E' Lateral Ratio 6.1 LV E' Septal Velocity 8.0 cm/s Mitral E to LV E' Septal Ratio 9.6
[2017-07-04 14:22] VITALS: BP 112/70
--- NOTE | 2017-07-04 16:05 | Cons- Nephrology ---
General Information and HPI Consulting Request Date of Consult: 07/04/17 Requested By: Shawna GRACIA,Malick Reason for Consult: Elevated creatinine, protinuria History of Present Illness: 37 yo male with history of hypothryoidism, admitted with leg edema. During the hospitalization his creatinine has varied between 1.3 and 1.5. He had no blood or protein on UA, 24 hour urine protein excretion was 312 mg on 3.9 liter collection. He is 6 feet tall, weighs 150 kg, does take supplement which have creatine in it. 24 hour urine creatinine excretion is difficult to interpret from lab reports but appears to be around 4 grams. Edema has subsided in hospital but he was given some Lasix. Echo has showed normal heart, no history of liver problems. Renal US normal. FH: negative for kidney disease SH: no smoking, rare ethanol. Allergies/Medications Allergies: Coded Allergies: No Known Allergies (07/01/17) Home Med List: Levothyroxine Sodium 175 MCG TABLET 1 TAB PO DAILY Hypothryoidism (Reported) Review of Systems Review of Systems: Negative except as noted above. Past History Travel History Traveled to [place] past 21 day No Medical History Neurological: NONE EENT: NONE Cardiovascular: NONE Respiratory: NONE Gastrointestinal: NONE Hepatic: NONE Renal: NONE Musculoskeletal: NONE Psychiatric: NONE Endocrine: hypothyroidism Blood Disorders: NONE Cancer(s): NONE Surgical History Surgical History: non-contributory Family History Relations & Conditions If Any: paternal uncle FH: diabetes mellitus Psychosocial History Where Do You Live? Home Smoking Status: Never Smoked ETOH Use: occasional use Illicit Drug Use: denies illicit drug use Functional Ability ADLs Independent: dressing, eating, toileting, bathing. Ambulation: independent IADLs Independent: shopping, housework, finances, food prep, telephone, transportation , medication admin. Exam & Diagnostic Data Vital Signs and I&O Vital Signs Date Time Temp Pulse Resp B/P B/P Pulse O2 O2 Flow FiO2 Mean Ox Delivery Rate 07/04 1422 98.2 64 20 112/70 96 Room Air 07/04 0600 97.8 58 18 120/80 96 07/03 2318 97.6 60 18 150/78 96 Room Air Intake & Output 07/04 1600 07/04 0400 07/03 1600 07/03 0400 07/02 1600 07/02 0400 Intake Total 730 240 780 240 0 Output Total 240 800 750 Balance 730 0 -20 -510 0 Intake, IV 10 10 Intake, Oral 720 240 770 240 0 Output, Urine 240 800 750 Patient 344 lb 350 lb 350 lb Weight Weight Bed scale Estimated Measurement Method Physical Exam: Large male, NAD VS as above Eyes: anicteric, PERRLA Neck: no mass or thyromegaly Nodes: negative cervial/inguinal Skin: no rash or induration Lungs : clear P&A CV:no rub or murmur Abd: obese, nontender, no organomegaly, BS positive Exts: no edema, 1+DP, Neuro: A&O, CN intact, no asterixis. Results Pertinent Lab Results: Laboratory Tests 07/04 07/03 07/02 0650 0630 2125 Chemistry Sodium (137 - 145 mmol/L) 140 140 Potassium (3.5 - 5.1 mmol/L) 4.3 4.7 Chloride (98 - 107 mmol/L) 104 102 Carbon Dioxide (22 - 30 mmol/L) 27 25 Anion Gap (5 - 16) 9 13 BUN (9 - 20 mg/dL) 20 20 Creatinine (0.7 - 1.2 mg/dL) 1.4 H 1.4 H Estimated GFR (>60 ml/min) 56 L 56 L BUN/Creatinine Ratio (7 - 25 %) 14.3 14.3 Serum Osmolality (285 - 295 MOSM/KG) 297 H Total Bilirubin (0.2 - 1.3 mg/dL) 0.7 Direct Bilirubin (< 0.4 mg/dL) 0.4 AST (17 - 59 U/L) 63 H ALT (21 - 72 U/L) 154 H Alkaline Phosphatase (< 127 U/L) 47 Total Protein (6.3 - 8.2 g/dL) 6.9 Albumin (3.5 - 5.0 g/dL) 4.0 Hematology CBC w Diff NO MAN DIFF REQ WBC (4.8 - 10.8 /CUMM) 6.4 RBC (4.70 - 6.10 /CUMM) 5.49 Hgb (14.0 - 18.0 G/DL) 16.0 Hct (42 - 52 %) 47.5 MCV (80.0 - 94.0 FL) 86.4 MCH (27.0 - 31.0 PG) 29.1 MCHC (33.0 - 37.0 G/DL) 33.7 RDW (11.5 - 14.5 %) 13.6 Plt Count (130 - 400 /CUMM) 280 MPV (7.4 - 10.4 FL) 7.7 Gran % (42.2 - 75.2 %) 51.0 Lymphocytes % (20.5 - 51.1 %) 34.3 Monocytes % (1.7 - 9.3 %) 10.9 H Eosinophils % (0 - 5 %) 3.3 Basophils % (0.0 - 2.0 %) 0.5 Absolute Granulocytes (1.4 - 6.5 /CUMM) 3.2 Absolute Lymphocytes (1.2 - 3.4 /CUMM) 2.2 Absolute Monocytes (0.10 - 0.60 /CUMM) 0.7 H Absolute Eosinophils (0.0 - 0.7 /CUMM) 0.2 Absolute Basophils (0.0 - 0.2 /CUMM) 0 Urines Urine Total Volume (600 - 1500 ML/24HR) 3900 H Ur Total Protein 24 Hr (42 - 255 mg/24HR) 312.0 H 07/02 07/02 07/02 07/02 2103 1933 0605 0325 Chemistry Sodium (137 - 145 mmol/L) 141 Potassium (3.5 - 5.1 mmol/L) 4.6 Chloride (98 - 107 mmol/L) 105 Carbon Dioxide (22 - 30 mmol/L) 25 Anion Gap (5 - 16) 12 BUN (9 - 20 mg/dL) 21 H Creatinine (0.7 - 1.2 mg/dL) 1.3 H Estimated GFR (>60 ml/min) > 60 BUN/Creatinine Ratio (7 - 25 %) 16.2 Serum Osmolality Cancelled Total Bilirubin (0.2 - 1.3 mg/dL) 0.6 Direct Bilirubin (< 0.4 mg/dL) 0.4 AST (17 - 59 U/L) 80 H ALT (21 - 72 U/L) 152 H Alkaline Phosphatase (< 127 U/L) 45 Troponin I (<0.11 ng/ml) < 0.01 Total Protein (6.3 - 8.2 g/dL) 6.7 Albumin (3.5 - 5.0 g/dL) 3.8 Urines Urine Osmolality (300 - 1000 MOSM/KG) 653 Ur Random Creatinine (mg/dL) 111.1 168.9 U Random Total Protein (0 - 12 mg/dL) 7 7 Ur Random Sodium (30 - 90 mmol/L) 155 H Ur Random Potassium (mmol/L) 27.5 Protein/Creatinin Ratio (< 0.2) 0.0 Fraction Sodium Excret (<1% %) 1.3 H 07/02 07/02 07/02 0325 0020 0020 Chemistry Lactic Acid Cancelled Troponin I (<0.11 ng/ml) < 0.01 TSH (0.270 - 4.200 uIU/mL) 2.380 Thyroxine (T4) (4.5 - 10.9 ug/dL) 5.0 Toxicology Urine Opiates Screen (>2000 NG/ML) < 100 Methadone Screen (>300 NG/ML) < 40 Barbiturate Screen (>200 NG/ML) < 60 Ur Phencyclidine Scrn (>25 NG/ML) < 6.00 Amphetamines Screen (>1000 NG/ML) < 100 U Benzodiazepines Scrn (>200 NG/ML) < 85 Urine Cocaine Screen (>300 NG/ML) < 50 Urine Cannabis Screen (>50 NG/ML) < 5.00 Urines Urine Color (YEL,AMB,STR) YEL Urine Clarity (CLEAR) CLEAR Urine pH (5.0 - 8.0) 6.0 Ur Specific [place] (1.001 - 1.035) 1.025 Urine Protein (NEG,<30 MG/DL) NEG Urine Ketones (NEG) NEG Urine Nitrite (NEG) NEG Urine Bilirubin (NEG) NEG Urine Urobilinogen (0.1 - 1.0 EU/dl) 0.2 Ur Leukocyte Esterase (NEG) NEG Ur Microscopic EXAM NOT REQUIRED Urine Hemoglobin (NEG) NEG Urine Glucose (N MG/DL) NEG 07/02 2119 Chemistry Sodium (137 - 145 mmol/L) 142 Potassium (3.5 - 5.1 mmol/L) 4.3 Chloride (98 - 107 mmol/L) 103 Carbon Dioxide (22 - 30 mmol/L) 26 Anion Gap (5 - 16) 13 BUN (9 - 20 mg/dL) 22 H Creatinine (0.7 - 1.2 mg/dL) 1.5 H Estimated GFR (>60 ml/min) 52 L BUN/Creatinine Ratio (7 - 25 %) 14.7 Glucose (65 - 99 mg/dL) 91 Lactic Acid (0.7 - 2.1 mmol/L) 1.1 Calcium (8.4 - 10.2 mg/dL) 9.4 Total Bilirubin (0.2 - 1.3 mg/dL) 0.4 AST (17 - 59 U/L) 83 H ALT (21 - 72 U/L) 151 H Alkaline Phosphatase (< 127 U/L) 43 Troponin I (<0.11 ng/ml) < 0.01 [id number]-[id number] Pept (<125 pg/mL) 41.4 Total Protein (6.3 - 8.2 g/dL) 6.8 Albumin (3.5 - 5.0 g/dL) 3.9 Globulin (1.9 - 4.2 gm/dL) 2.9 Albumin/Globulin Ratio (1.1 - 2.2 %) 1.3 Coagulation D-Dimer High Sensitivty (0 - 243 ng/ml) < 200 Hematology CBC w Diff NO MAN DIFF REQ WBC (4.8 - 10.8 /CUMM) 7.8 RBC (4.70 - 6.10 /CUMM) 5.11 Hgb (14.0 - 18.0 G/DL) 14.9 Hct (42 - 52 %) 43.9 MCV (80.0 - 94.0 FL) 85.9 MCH (27.0 - 31.0 PG) 29.1 MCHC (33.0 - 37.0 G/DL) 33.9 RDW (11.5 - 14.5 %) 13.4 Plt Count (130 - 400 /CUMM) 324 MPV (7.4 - 10.4 FL) 7.1 L Gran % (42.2 - 75.2 %) 50.1 Lymphocytes % (20.5 - 51.1 %) 37.8 Monocytes % (1.7 - 9.3 %) 9.7 H Eosinophils % (0 - 5 %) 1.9 Basophils % (0.0 - 2.0 %) 0.5 Absolute Granulocytes (1.4 - 6.5 /CUMM) 3.9 Absolute Lymphocytes (1.2 - 3.4 /CUMM) 3.0 Absolute Monocytes (0.10 - 0.60 /CUMM) 0.8 H Absolute Eosinophils (0.0 - 0.7 /CUMM) 0.1 Absolute Basophils (0.0 - 0.2 /CUMM) 0 Assessment/Plan Assessment/Recommendations Assessment: Patient with no signficant renal abnormalities. Creatinine of 1.5 represents normal renal function in man of his muscle mass/size. 24 hour creatinine excretion seems excessive and I worry about over collection/mistake or possibly some effect of creatine supplementation. 24 hour urine protien only minimally elevated even if it wasn't an over collection and certainly not high enough to cause any concerns. No hematuria and normal ultrasound. Edema not on the basis of renal issues, more likely venous insuficiency. Recommendations: Doesn't need further nephrologic evaluation at this time. Needs weight loss which would help with venous issues. Obesity itself can cause some proteinuria. He should follow up with his PMD, repeat UA, serum creatinine in about 6 weeks to make sure everything stable.
--- NOTE | 2017-07-04 17:58 | Patient Discharge Instructions ---
Discharge Instructions General Discharge Information You were seen/treated for: proteinuria transamanitis chest pain You had these procedures: kidney and heart test Watch for these problems: chest pain nausea vomiting fever swelling Special Instructions: 1. follow up with a pcp in one week you will need repeat urine tests to check kidney function in 6 weeks 2. Continue using CPAP for LAZARO Diet Continue normal diet: Yes Activity Full Activity/No Limits: Yes Acute Coronary Syndrome Inclusion Criteria At DC or during hospital stay patient has or had the following: ACS DIAGNOSIS No Discharge Core Measures Meds if any: Prescribed or Continued at Discharge Meds if any: NOT Prescribed or Continued at Discharge Congestive Heart Failure Inclusion Criteria At DC or during hospital stay patient has or had the following: CHF DIAGNOSIS No Discharge Core Measures Meds if any: Prescribed or Continued at Discharge Meds if any: NOT Prescribed or Continued at Discharge Cerebrovascular accident Inclusion Criteria At DC or during hospital stay patient has or had the following: CVA/TIA Diagnosis No Discharge Core Measures Meds if any: Prescribed or Continued at Discharge Meds if any: NOT Prescribed or Continued at Discharge Venous thromboembolism Inclusion Criteria VTE Diagnosis No VTE Type NONE VTE Confirmed by (Test) NONE Discharge Core Measures - Per Current guidelines, there needs to be overlap - treatment for the first 5 days of Warfarin therapy. - If discharged on Warfarin prior to 5 days of - overlap therapy, the patient will need to be - assessed for post discharge needs including - *Post discharge parental anticoagulation - *Warfarin and/or parental anticoagulation education - *Follow up date to check INR post discharge At least 5 days overlap therapy as Inpatient No Meds if any: Prescribed or Continued at Discharge Note: Overlap Therapy is Warfarin and Anticoagulant Meds if any: NOT Prescribed or Continued at Discharge
[2017-07-04 21:41] VITALS: BP 118/60
[2017-07-05 06:22] VITALS: BP 116/70
--- NOTE | 2017-07-05 07:58 | PN- Housestaff ---
Aaliyah Ross MD 07/05/17 0758: Subjective Follow-up For: Proteinuria with ABBI Transaminitis Chest pain and shortness of breath Complaints: no complaints Tele-Events Since Last Visit: sinus rhythm at a rate of 38-66, infrequent PVCs Subjective: Patient feels good, no complaints, no shortness of breath or chest pain Review of Systems Constitutional: Reports: no symptoms. Cardiovascular: Reports: no symptoms. Respiratory: Reports: no symptoms. Gastrointestinal: Reports: no symptoms. Genitourinary: Reports: no symptoms. Musculoskeletal: Reports: no symptoms. Objective Last 24 Hrs of Vital Signs/I&O Vital Signs Date Time Temp Pulse Resp B/P B/P Pulse O2 O2 Flow FiO2 Mean Ox Delivery Rate 07/05 1130 98.9 74 18 136/90 96 Room Air 07/05 0622 98.2 59 18 116/70 98 07/04 2141 98.6 63 20 118/60 93 Room Air 07/04 1422 98.2 64 20 112/70 96 Room Air Intake & Output 07/05 1600 07/05 0800 07/05 0000 Intake Total 120 300 Output Total Balance 120 300 Intake, Oral 120 300 Patient 339 lb Weight Physical Exam General Appearance: Alert, Oriented X3, Cooperative, No Acute Distress Skin: No Rashes, No Breakdown, No Significant Lesion Skin Temp/Moisture Exam: Warm/Dry Sepsis Skin Exam (color): Normal for Ethnicity HEENT: Atraumatic, PERRLA, EOMI, Mucous Membr. moist/pink Neck: Supple, No JVD Cardiovascular: Regular Rate, Normal S1, Normal S2, No Murmurs Lungs: Clear to Auscultation, Normal Air Movement Abdomen: Normal Bowel Sounds, Soft, No Tenderness, No Hepatospenomegaly Neurological: Normal Speech Extremities: No Clubbing, No Cyanosis, No Edema, Normal Pulses, No Tenderness/ Swelling Vascular: Normal Pulses, Pulses Symmetrical Current Medications: Current Medications Sig/Arnulfo Start time Last Medication Dose Route Stop Time Status Admin Heparin Sodium 5,000 UNIT Q8 07/02 0600 DCD 07/05 (Porcine) SC 0550 Levothyroxine Sodium 0.175 MG DAILY AC 07/02 0700 DCD 07/05 PO 0550 Last 24 Hrs of Lab/Yoshi Results Last 24 Hrs of Labs/Mics: Laboratory Tests 07/05/17 0638: Anion Gap 12, Estimated GFR 56 L, BUN/Creatinine Ratio 12.1, Total Bilirubin 0.6, Direct Bilirubin 0.3, AST 56, ALT 146 H, Alkaline Phosphatase 42, Total Protein 6.4, Albumin 3.6, CBC w Diff NO MAN DIFF REQ, RBC 5.42, MCV 86.6, MCH 29.3, MCHC 33.8, RDW 13.6, MPV 7.8, Gran % 48.9, Lymphocytes % 37.1, Monocytes % 10.7 H, Eosinophils % 2.7, Basophils % 0.6, Absolute Granulocytes 3.1, Absolute Lymphocytes 2.4, Absolute Monocytes 0.7 H, Absolute Eosinophils 0.2, Absolute Basophils 0 Assessment/Plan Assessment: Patient is a 37-year-old male with a past medical history of hypothyroidism and obstructive sleep apnea that was admitted with worsening edema, chest pain, shortness of breath and decreased urination for one week. 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 The patient has no history of heart problems in himself or his family, no respiratory issues. He had T-wave inversions in inferior leads on EKG on admission from his EKG a few years prior. His ensuing EKG's are unchanged from his admission one, with no ST/T changes, NSR. Troponins have been negative. U tox is negative and d-dimer negative. Patient's glomerular alteration rate as per MDRD not taking into account height or weight, only good for chronic GFR measurement, is 60. The crockcroff formula takes into account height and weight and is thus more reliable for him with a GFR from 79.7-110.5. Patient was given 1 dose of Lasix 20 mg IV on admission. His UA was unimpressive but his urine total protein 24-hour collection was mildly elevated (not quite nephrotic range) along with a fractional sodium excretion and 24-hour creatinine excretion which is excessively elevated. Urine glucose was negative. Abdominal ultrasound negative. Chest x-ray negative. Plan Proteinuria and ABBI -As per nephrology, creatinine is actually normal for a person of his size and musculature. The 24-hour creatinine elevation may be secondary to over collection/mistake/affect creatinine supplementation. He seems to also think the edema is secondary to venous insufficiency. -Cardiovascular Physician Assistant patient to refrain from usage of multiple herbal supplements including fat burners and high protein heavy diet as well as creatine supplements -Normal hemoglobin A1c, glucose and the blood was normal, negative glucose in the urine -Nephrology has suggested following up with creatinine and urinalysis and 6 weeks with primary doctor -Urine culture negative so far -Ins and outs and daily weights Chest pain -Echocardiogram showed 60% EF, otherwise normal read -Continue aspirin Hypothyroidism -TSH is normal -Continue levothyroxine outpatient dose Elevated transaminases: Does not follow a pattern for alcohol use. Potentially secondary to third spacing and decreased hepatic perfusion? Ultrasound abdomen is negative but does appear distended, less so today. -Trend LFTs, have decreased today. Obstructive sleep apnea -Continue patient on CPAP which he uses outpatient Disposition -Patient is stable today for discharge Full code Healthy diet DVT prophylaxis with heparin and Alps Problem List: 1. ABBI (acute kidney injury) 2. Chest pain Pain Ratin Pain Location: na Pain Goal: Remain pain free Pain Plan: na Tomorrow's Labs & Rationales: To be discharged Malick Matos 07/05/17 1025: Attending MD Review Statement Attending Statement Attending MD Statement: examined this patient, discuss w/resident/PA/WEB WEAVER, agreed w/resident/PA/WEB WEAVER, discussed with family, reviewed EMR data (avail), discussed with nursing, discussed with case mgmt, reviewed images, amended to note Attending Assessment/Plan: Patient seen/examined. No new complaints. Nephrology apprecaited and consider elevation of creatinine from his physiology. Patient can be discharged with outpatient follow up PCP in 2 weeks of discharge.
[2017-07-05 08:06] LABS: ABSOLUTE BASOPHIL COUNT 0 /CUMM (0.0-0.2); ABSOLUTE EOSINOPHIL COUNT 0.2 /CUMM (0.0-0.7); ABSOLUTE GRANULOCYTE CT 3.1 /CUMM (1.4-6.5); ABSOLUTE LYMPH COUNT 2.4 /CUMM (1.2-3.4); ABSOLUTE MONOCYTE COUNT 0.7 /CUMM (0.10-0.60); BASOPHIL % 0.6 % (0.0-2.0); EOSINOPHIL % 2.7 % (0-5); GRANULOCYTE % 48.9 % (42.2-75.2); HEMATOCRIT 46.9 % (42-52); MEAN CORPUSCULAR HGB 29.3 PG (27.0-31.0); MEAN CORPUSCULAR HGB CONC 33.8 G/DL (33.0-37.0); MEAN CORPUSCULAR VOLUME 86.6 FL (80.0-94.0); MEAN PLATELET VOLUME 7.8 FL (7.4-10.4); PLATELET COUNT 290 /CUMM (130-400); RBC DISTRIBUTION WIDTH 13.6 % (11.5-14.5); RED BLOOD CELL CT 5.42 /CUMM (4.70-6.10); WHITE BLOOD CELL COUNT 6.4 /CUMM (4.8-10.8)
--- NOTE | 2017-07-05 08:42 | Discharge Summary ---
Hospital Course Allergies: Coded Allergies: No Known Allergies (07/01/17) Discharge Instructions Medications at Discharge Discharge Medications: Continue taking these medications: Levothyroxine Sodium (Levothyroxine Sodium) 175 MCG TABLET 1 Tablet ORAL DAILY Qty = 90
[2017-07-05 11:30] VITALS: BP 136/90
== END 2017-07-05 11:39 | DRG 683 ==
LOC: ERH 20:26 → 1NO 07-02 00:47 → ERHI 07-02 00:47 → ENRESERV 07-02 18:35 → ENTRNSPT 07-02 18:53 → EDTRNSPTSTS 07-02 18:58 → EDTRNSPT 07-02 18:58 → 1NO 07-02 19:21 → CMPTRNSPT 07-02 19:30 → 1NO 07-04 11:31 → ENPENDDIS 07-05 11:01 → 1NO 07-05 11:39
PROVIDERS: Emergency Medicine; Student in an Organized Health Care Education/Training Program
DX: N17.9 Acute kidney failure, unspecified (principal); Z68.42 Body mass index [BMI] 45.0-49.9, adult; E66.01 Morbid (severe) obesity due to excess calories; E03.9 Hypothyroidism, unspecified; R60.0 Localized edema; R80.9 Proteinuria, unspecified
CPT/HCPCS: 1NSP; 84133; 84300; 36415; 36592; 71045; 80307; 81003; 82436; 82570; 87086; 93005; 93010; 93306; J1644; J1940